=== PATIENT | female | born 1955 | race Caucasian/White ===

== ENCOUNTER 2016-08-17 09:43 | Day surgery (SDC) | payer OTHER ==
[~2016-08-17] VITALS: Ht 166.6 cm; Wt 91.3 kg
[2016-08-17] VITALS (10 sets, daily range): BP systolic 114–123; BP diastolic 59–74; PULSE 60–80; RESP 12–17; O2SAT 97–100
[~2016-08-17 09:43] MED LIST: ADAL40PE SQ; ASPI-628 PO; ATRV10T PO; AZEL205. NS; BUPR100T15 PO; CHOL200020 PO; DETROL LA4 M1 PO; FOLI1TAB18 PO; GABA600T2 PO; INSLIS SUBQ; INSU100V7 SUBQ; LEFL20TA18 PO; LISI10TA2 PO; LORA10TA7 PO; METF500T4 PO; MONT10TA20 PO; MULT-426 PO; OMEP-113 PO; OXYB15TA PO; TRAM50TA2 PO; TRAZ150T72 PO; ZIPR80CA2 PO; levoFLOXacin Inj 500 MG in IV Premix 1 EACH IV SCH
[2016-08-17] MEDS ORDERED: fentaNYL-PF 50 mCg/mL 2 mL Inj ONE (09:44)
[2016-08-17] MEDS ORDERED: EPHEDrine/NS 5 mg/mL 5 mL Syringe ONE (09:44)
[2016-08-17] MEDS ORDERED: Propofol 10,000 mCg/mL 20 mL Inj ONE (09:44)
[2016-08-17] MEDS ORDERED: Ondansetron 2 mg/mL 2 mL Inj ONE (09:44)
[2016-08-17] MEDS: Lactated Ringer's 1,000 ML IV SCH ×2 (09:58→11:58)
[2016-08-17] MEDS ORDERED: INSU100V2 SUBQ (10:07)
[2016-08-17] MEDS ORDERED: Lactated Ringer's 1,000 ML IV SCH (11:11)
[2016-08-17] MEDS ORDERED: Lactated Ringer's 500 ML IV PRN (11:11)
[2016-08-17] MEDS ORDERED: EPHEDrine Sulfate 50 mg/mL Inj IVPUSH PRN (11:15)
[2016-08-17] MEDS ORDERED: Phenylephrine 10,000 mCg/mL Inj IVPUSH PRN (11:15)
[2016-08-17] MEDS ORDERED: MetoCLOpramide 5 mg/mL 2 mL Inj IVPUSH PRN (11:15)
[2016-08-17] MEDS ORDERED: hydrALAZINE 20 mg/mL Inj IVPUSH PRN (11:15)
[2016-08-17] MEDS ORDERED: fentaNYL-PF 50 mCg/mL 2 mL Inj IVPUSH PRN (11:15)
[2016-08-17] MEDS ORDERED: Labetalol 5 mg/mL 4 mL Inj IV PRN (11:15)
[2016-08-17] MEDS ORDERED: Ondansetron 2 mg/mL 2 mL Inj IVPUSH PRN (11:15)
[2016-08-17] MEDS ORDERED: HYDROmorphone 1 mg/mL Inj IVPUSH PRN (11:15)
[2016-08-17] MEDS ORDERED: Atropine 0.4 mg/mL Inj IVPUSH PRN (11:15)
--- NOTE | 2016-08-17 11:56 | PCM.HPANE ---
Patient Data Surgeon Admitting Provider: Attending Provider:Margot Grant MD Primary Care Physician:Paddy Rosenthal MD Other Provider:[facility] Reason for Visit Mixed Incontinence, Urgency Of Urination Ht/WT & BMI Height (Feet): 5 Height (Inches): 5.58 Weight (Kilograms): 91.3 Body Mass Index 32.00 Allergies Coded Allergies: fluoxetine (Verified Allergy, Severe, Suicidal ideation, 04/28/09) prochlorperazine (Verified Allergy, Severe, 08/20/14) calcium (Verified Allergy, Unknown, 11/18/13) docusate (Verified Allergy, Unknown, 11/18/13) folic acid (Verified Allergy, Unknown, 11/18/13) iron,carbonyl (Verified Allergy, Unknown, 11/18/13) vitamins with calcium (Verified Allergy, Unknown, 11/18/13) prochlorperazine edisylate (Verified Allergy, Unknown, 11/18/13) prochlorperazine maleate (Verified Allergy, Unknown, 11/18/13) sulfasalazine (Verified Allergy, Unknown, 04/28/09) Past Anesthesia History Anesthesia History: Denies:: Abnormal Airway, Anesthesia Reactions, Difficult Intubation, Fam Anesthesia Reaction, Fam Malignant Hypertherm, Malignant Hyperthermia Diabetes History Hx Diabetes?: Yes Glycemic Control: Insulin & Oral Medication Current Bedside Blood Glucose: 156 MRSA MRSA: No Medications Blood Thinner: Aspirin Home Meds Incl Beta Manolo: No Reported Medications Insulin Glulisine (Apidra U100 Insulin Vial)100 Unit/1 Ml Mdyu50-01 Units SUBQ TIDWM #10 08/17/16 Oxybutynin Chloride ER 15 Mg Tab.er.2415 Mg PO DAILY Ref 0 08/15/16 Insulin Glargine (Lantus U100 Insulin Vial)100 Unit/Ml Vial9 Unit SUBQ HS #1 VIAL Ref 0 08/15/16 Cholecalciferol (Vitamin D3) (Vitamin D-3)2,000 Unit Capsule2,000 Unit PO DAILY 08/20/14 Trazodone 150 Mg Inxjdg830 Mg PO HS 30 Days Ref 0 08/20/14 Tramadol 50 Mg Hsgtik49 Mg PO Q8 PRN For Pain Ref 0 08/20/14 Montelukast (Singulair)10 Mg Fpgpgl71 Mg PO AM 30 Days Ref 0 08/20/14 Multivitamin with Minerals (One Daily 50 Plus)1 Each Tablet1 Each PO DAILY 08/20/14 Omeprazole Magnesium (Omeprazole)20 Mg Capsule.dr20 Mg PO BID 30 Days Ref 0 08/20/14 Metformin 500 Mg Tablet1,000 Mg PO HS 30 Days Ref 0 08/20/14 Loratadine 10 Mg Lpqbsw81 Mg PO DAILY 30 Days Ref 0 08/20/14 Lisinopril 10 Mg Bnlchf90 Mg PO DAILY 30 Days Ref 0 08/20/14 Leflunomide 20 Mg Sfigta66 Mg PO DAILY 08/20/14 Ziprasidone (Geodon)80 Mg Lryxhlq27 Mg PO HS 30 Days 08/20/14 Gabapentin 600 Mg Svcker191 Mg PO TID 30 Days Ref 0 08/20/14 Bupropion 100 Mg Kkfnrp927 Mg PO BID 30 Days Ref 0 08/20/14 Atorvastatin (Lipitor)10 Mg Tab40 Mg PO DAILY 30 Days Ref 0 08/20/14 Aspirin (Aspir 81)81 Mg Tablet.dr81 Mg PO DAILY Ref 0 08/20/14 Discontinued Reported Medications Tolterodine Tartrate ER (Detrol LA)4 Mg Capsule4 Mg PO DAILY 08/15/16 Adalimumab (Humira)40 Mg/0.8 Ml Pen.ij.kit40 Mg SQ 08/20/14 Insulin Human Lispro (HumaLOG U100 Insulin Vial)100 Unit/Ml Unit5-10 SUBQ TID- INSULIN #20 ML Ref 3 Check blood sugars before meals and at bedtime. Use correction factor only before meals. Blood Sugar Lispro Correction: <151, 0 units; 151-175, 1 unit; 176-200, 2 units; 201-225, 3 units; 226-250, 4 units; 251-275, 5 units; 276-300, 6 units; 301-325, 7 units; 326-350, 8 units; 351-375, 9 units; 376-400, 10 units; >400, 12 units. 08/20/14 Folic Acid 1 Mg Tablet1 Mg PO DAILY 30 Days 08/20/14 Azelastine HCl (Astepro)205.5 Mcg/0.137 Ml Alpaugh.nqay574.5 Mcg NS BID 08/20/14 History History of ENT Problems?: No HEENT History: Positive for:: Cataracts (NUCLEAR SENILE CATARACT) Denies:: Abnormal Airway Difficult Intubation Dysphagia Hearing Problem Other HEENT Pertinent History: DRY TOOTH SOCKET Hx of Heart Problems?: Yes Cardiovascular History: Positive for:: Cardiac Surgery (heart cath) Chest Pain (2013) Coronary Artery Disease (S/P CORONARY STENTING.) Hypertension (ELEVATED CHLORESTEROL) Denies:: AICD Atrial Fibrillation Congestive Heart Failure Edema Heart Murmur Irregular Heartbeat Pacemaker Thrombophlebitis Valvular Heart Disease Other Cardiac History: Currently >4 METS, denies WEN/SOB Hx of Respiratory Problem?: Yes Respiratory History: Positive for:: Cough (dry cough, allergy related ) Denies:: Asthma COPD Hemoptysis Pneumonia Tuberculosis Other Resp Pertinent History: DOES HAVE SLEEP APNEA Hx Neurologic Problems?: Yes Neurological History: Positive for:: Dizziness (BENIGN PAROXYSMAL POSITIONAL VERTIGO) Headaches Denies:: CVA Dementia Other Neurological Pertinent: RESTLESS LEG SYNDROM INSOMNIA Hx of GI Problems?: Yes Gastrointestinal History: Positive for:: Gastroesphageal Reflux (takes Omeprazole BID, denies current symptoms) Heartburn Hiatal Hernia Denies:: Cirrhosis Diverticulitis Gastrointestinal Bleeding Hepatitis Rectal Bleeding Other GI Pertinent History: DIARRHEA Hx of Problems?: No Genitourinary History: Positive for:: Urinary Tract Infection Other Pertinent History: HPV Female Hx: Denies:: Currently Endometriosis Pelvic Inflammatory Problems with Breasts? Skin History: Positive for:: History Skin Disorders? (Psoriasis in past) Denies:: Pressure Ulcers Hx Musculoskeletal Problems?: Yes Musculoskeletal History: Positive for:: Back Injury Rheumatoid Arthritis Denies:: Joint Replacement Musculoskeletal Trauma Hx of Psycho/Social Problems?: Yes Psycho Social History: Positive for:: Anxiety Bipolar Disorder Hx Depression Suicide Attempt (last in 2003) Hx Surgeries?: Yes (stents, laproscopic procedure ) Hx Any Other Health Problems?: Yes Other History: Positive for:: Hospitalization Denies:: Cancer Endocrine Disease Thyroid Disease History Blood Transfusions: Denies:: Blood Transfuse Reaction Blood Transfusions Hx Diabetes: YesBedside Blood Glucose: 156 Hx Alcohol Use: NoHx Substance Use: No Smoking Status: Never Smoker Have You Smoked inLast 12 mo: No Stop/Bang S-Snoring: Do You Snore Loudly: No T-Tired: feel tired, fatigued: No O-Obsered: Observed not breath: No P-Blood Pressure: treated: Yes B- Body Mass Index > 35 kg/m2: No A- Age over 50: Yes N- Neck Large Circumference: No G- Gender Male: No WOODROW Total Score: 2 WOODROW Risk Assessment: Low Risk, <3 Yes Risk Assessment Category Category 1A: Patient has history of documented sleep apnea, and HAS NOT received any narcotic, sedative or anesthesia administration during this stay. Category 1B: Patient has history of documented sleep apnea, and HAS received any narcotic , sedative or anesthesia administration during this stay Category 2: Patient has SUSPECTED Obstructive Sleep Apnea, and HAS received any narcotic , sedative or anesthesia administration during this stay. Category 3: Patient has SUSPECTED Obstructive Sleep Apnea and HAS NOT received narcotic, sedative or anesthesia administration during this stay. Category 4: Outpatient in Procedural Areas with known sleep apnea or who screen positive for High Risk via the STOP/BANG questionnaire. Exam Exam Vital Signs Vital Signs Date Time Temp Pulse Resp B/P Pulse Ox O2 Delivery O2 Flow Rate FiO2 08/17/16 10:14 36.0 60 16 116/59 99 Room Air General Appearance: Alert, Oriented X3, Cooperative, No Acute Distress HEENT/AIRWAY: MP 2 Lungs: Clear to Auscultation, Normal Air Movement Heart: Exam Unremarkable, Regular Rate/Rhythm, No Murmurs/Rubs/Gallops Meds/Labs/Diagnostics Admission Meds Current Medications Lactated Ringer's (Lr) 1,000 ml @ 120 mls/hr Q8H20M IV Last administered on t 09:58; Start 08/17/16 at 05:00; Stop 08/17/16 at 13:19 Bedside Blood Glucose: 156 Plan Impression Patient chart reviewed, patient interviewed and anesthestic plan with risks, benefits, and alternatives discussed, and informed consent obtained. NPO Status: 08/16/16 ASA Physical Status: ASA2 Mod Systemic Disease Anesthetic Plan: GA Bene/Risks/Altern/Consents: Yes HP Complete Prior to Induction: Yes Nestor Lockwood MD Aug 17, 2016 10:38
[2016-08-17] MEDS ORDERED: Ondansetron 8 mg ODT Tablet PO PRN (12:40)
[2016-08-17] MEDS ORDERED: HYDROcodone-APAP 5-325 mg Tablet PO PRN (12:40)
[2016-08-17] MEDS ORDERED: Phenazopyridine 97.5 mg Tablet PO PRN (12:40)
--- NOTE | 2016-08-17 12:52 | PCM.ANEP1 ---
Post Anesthesia Phase 1 PACU Phase 1 Assessment Vital Signs Vital Signs Date Time Temp Pulse Resp B/P Pulse Ox O2 Delivery O2 Flow Rate FiO2 08/17/16 12:46 70 12 114/60 100 Nasal Cannula 3 08/17/16 12:40 77 12 122/70 98 Nasal Cannula 3 08/17/16 12:38 36.1 80 17 123/64 98 Nasal Cannula 3 08/17/16 10:14 36.0 60 16 116/59 99 Room Air Anesthetic Administered: GA Level of Alertness: Awake, talking GRACIA's with Equal Strength: Yes Pain: No Nausea or Vomiting: No Oxygen Delivery: Nasal Cannula Lungs: Clear to Auscultation, Normal Air Movement Nestor Lockwood MD Aug 17, 2016 12:52
--- NOTE | 2016-08-17 12:58 | PCM.ANEP2 ---
Post Anesthesia Evaluation ASA/CMS Post Anesthesia VS in Patient's Normal Range?: Yes Resp Stable; Airway Patent?: Yes CV Function & Hydration Stable: Yes Mental Status Recovered?: Yes Pain control Satisfactory?: Yes N/V Control Satisfactory?: Yes Nestor Lockwood MD Aug 17, 2016 12:57
--- NOTE | 2016-08-17 14:37 | OP ---
[address] [address] OPERATIVE REPORT PATIENT: ARLEN GHOSH : 1955 MR#: [id number] ADMIT: 08/17/2016 JOB ID: [id number] DATE OF SURGERY: 08/17/2016 PROCEDURE NAME: 1. Cystoscopy. 2. Macroplastique injection into the bladder neck and proximal urethra. SURGEON: Margot Grant MD. ANESTHESIA: General. PREOPERATIVE DIAGNOSIS(ES): Stress urinary continence, female. POSTOPERATIVE DIAGNOSIS(ES): Stress urinary continence, female. INDICATIONS: The patient is a 61-year-old woman with multiple medical problems, mixed incontinence with a large stress component, desiring trial of a bulking agent, Macroplastique, for her stress incontinence. PROCEDURE IN DETAIL: After appropriate informed consent was obtained, the patient was brought to the operating room. She received IV antibiotics prior to the onset of the procedure. SCD were placed. After general anesthesia induced, she has carefully placed in dorsal lithotomy position. All pressure points carefully padded. Cleaned, prepped, and draped in the usual sterile fashion. Rigid scope was introduced into her bladder, which was drained. We then withdrew this to examine the urethra. Noted to be rather gaping and patulous. A total of 3 cc of Macroplastique were injected into three different sites providing good proximal urethral coaptation with a great decrease in the amount of leakage she had with bladder pressure. There was minimal bleeding. She tolerated this very well, was awakened, taken in stable condition to the postanesthesia care unit after her bladder was drained with a 12-Yoruba catheter.
== END 2016-08-17 23:59 | disposition home or self-care (01) ==
LOC: SAS 09:43
PROVIDERS: ATTEND Urology
DX: N39.46 Mixed incontinence (principal); I25.10 Atherosclerotic heart disease of native coronary artery without angina pectoris; I10 Essential (primary) hypertension; E78.5 Hyperlipidemia, unspecified; F31.9 Bipolar disorder, unspecified; E11.9 Type 2 diabetes mellitus without complications; L40.50 Arthropathic psoriasis, unspecified; K21.9 Gastro-esophageal reflux disease without esophagitis; M79.7 Fibromyalgia; E66.9 Obesity, unspecified; Z68.34 Body mass index [BMI] 34.0-34.9, adult; Z95.5 Presence of coronary angioplasty implant and graft; Z79.891 Long term (current) use of opiate analgesic; Z87.891 Personal history of nicotine dependence; Z79.4 Long term (current) use of insulin; Z79.82 Long term (current) use of aspirin; Z79.84 Long term (current) use of oral hypoglycemic drugs
CPT/HCPCS: 51715; J2405; J3010; J7120; L8606

== ENCOUNTER 2016-11-07 19:52 | Emergency (ER) | payer OTHER ==
[~2016-11-07] VITALS: Ht 165.1 cm; Wt 94.0 kg
[~2016-11-07 19:52] MED LIST changes: -ADAL40PE SQ; -AZEL205. NS; -DETROL LA4 M1 PO; -FOLI1TAB18 PO; -INSLIS SUBQ; +INSU100V2 SUBQ; -levoFLOXacin Inj 500 MG in IV Premix 1 EACH IV SCH
[2016-11-07 20:24] VITALS: BP 116/79; PULSE 73; RESP 16; O2SAT 100
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
[2016-11-07] MEDS ORDERED: IBUP-1827 PO (23:30)
[2016-11-07 23:51] VITALS: BP 133/74; PULSE 67; RESP 14; O2SAT 98
[2016-11-07 23:55] VITALS: BP 133/74; PULSE 67; RESP 14; O2SAT 98
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
== END 2016-11-07 23:54 | disposition home or self-care (01) ==
LOC: SED 19:52
DX: S16.1XXA Strain of muscle, fascia and tendon at neck level, initial encounter (principal); S29.019A Strain of muscle and tendon of unspecified wall of thorax, initial encounter; V43.62XA Car passenger injured in collision with other type car in traffic accident, initial encounter; Y93.89 Activity, other specified; Y92.410 Unspecified street and highway as the place of occurrence of the external cause; Y99.8 Other external cause status; E04.1 Nontoxic single thyroid nodule; I10 Essential (primary) hypertension; E11.9 Type 2 diabetes mellitus without complications; K21.9 Gastro-esophageal reflux disease without esophagitis; E78.5 Hyperlipidemia, unspecified; Z79.82 Long term (current) use of aspirin; Z79.4 Long term (current) use of insulin; Z79.84 Long term (current) use of oral hypoglycemic drugs; Z95.5 Presence of coronary angioplasty implant and graft; Z88.2 Allergy status to sulfonamides; Z88.8 Allergy status to other drugs, medicaments and biological substances
CPT/HCPCS: 72072; 72125; 96372; 99285; J1885

== ENCOUNTER 2017-02-05 10:08 | Emergency (ER) | payer OTHER ==
[~2017-02-05] VITALS: Ht 166.4 cm; Wt 95.5 kg
[~2017-02-05 10:08] MED LIST changes: +IBUP-1827 PO
[2017-02-05 10:10] VITALS: BP 145/68; PULSE 88; RESP 18; O2SAT 98
--- NOTE | 2017-02-05 10:18 | ED.REPORT ---
HPI-Chest Pain 40 and Over Date of Service Feb 05, 2017 ED Provider: Joe Poole MD Patient is a 61 year old female with a history of diabetes, stent placement and hypertension who presents to the ED complaining of chest pressure onset this morning. Associated symptoms include dyspnea with deep inhalation, a non productive cough for the past month but has been improving over the past 4 days , upper bilateral back pain, lightheadedness and "lung congestion". She denies fever, nausea, vomiting, dizziness, abdominal pain, leg swelling or hemoptysis. Patient states she has not felt this pain before. She currently takes daily ASA. Nursing Notes Stated Complaint: CHEST PAIN,HARD TO BREATH Chief Complaint: Chest Pain Nursing Notes Reviewed: Yes Allergies: Coded Allergies: fluoxetine (Verified Allergy, Severe, Suicidal ideation, 04/28/09) prochlorperazine (Verified Allergy, Severe, 08/20/14) calcium (Verified Allergy, Unknown, 11/18/13) docusate (Verified Allergy, Unknown, 11/18/13) folic acid (Verified Allergy, Unknown, 11/18/13) iron,carbonyl (Verified Allergy, Unknown, 11/18/13) methotrexate (Unverified Allergy, Unknown, 11/07/16) vitamins with calcium (Verified Allergy, Unknown, 11/18/13) prochlorperazine edisylate (Verified Allergy, Unknown, 11/18/13) prochlorperazine maleate (Verified Allergy, Unknown, 11/18/13) sulfasalazine (Verified Allergy, Unknown, 04/28/09) Scheduled Aspirin (Aspir 81) 81 Mg Tablet.dr 81 MG PO DAILY Atorvastatin (Lipitor) 10 Mg Tab 40 MG PO DAILY Azithromycin (Zithromax (Z-Edward)) 250 Mg Tablet 250 MG PO DIRECTED Take two tablets by mouth on day 1, then take one tablet daily on days 2 through 5. Bupropion (Bupropion) 100 Mg Tablet 100 MG PO BID Cholecalciferol (Vitamin D3) (Vitamin D-3) 2,000 Unit Capsule 2,000 UNIT PO DAILY Gabapentin (Gabapentin) 600 Mg Tablet 600 MG PO TID Insulin Glargine (Lantus U100 Insulin Vial) 100 Unit/Ml Vial 9 UNIT SUBQ HS Insulin Glulisine (Apidra U100 Insulin Vial) 100 Unit/1 Ml Vial 15-20 UNITS SUBQ TIDWM Leflunomide (Leflunomide) 20 Mg Tablet 20 MG PO DAILY Lisinopril (Lisinopril) 10 Mg Tablet 10 MG PO DAILY Loratadine (Loratadine) 10 Mg Tablet 10 MG PO DAILY Metformin (Metformin) 500 Mg Tablet 1,000 MG PO HS Montelukast (Singulair) 10 Mg Tablet 10 MG PO AM Multivitamin with Minerals (One Daily 50 Plus) 1 Each Tablet 1 EACH PO DAILY Omeprazole Magnesium (Omeprazole) 20 Mg Capsule.dr 20 MG PO BID Oxybutynin Chloride ER (Oxybutynin Chloride ER) 15 Mg Tab.er.24 15 MG PO DAILY Trazodone (Trazodone) 150 Mg Tablet 150 MG PO HS Ziprasidone (Geodon) 80 Mg Capsule 80 MG PO HS Scheduled PRN Ibuprofen (Ibuprofen) 600 Mg Tablet 600 MG PO QID PRN PRN For Pain Promethazine DM Syrup (Promethazine DM Syrup) 118 Ml Syrup 5 ML PO HS PRN PRN For Cough Tramadol (Tramadol) 50 Mg Tablet 50 MG PO Q8 PRN PRN For Pain General Time Seen by MD: 10:14 Chief Complaint Chest pain Hx Obtained From: Patient Arrived By: Walk-in Sudden in Onset?: Yes Onset Occurred: 1 - 4 hours ago Symptom Duration: Since onset Location: : Substernal Quality: Pressure Radiation: : Back Severity: Current: Moderate Past Medical History Past Medical History Heart disease Hyperlipidemia Insulin-dependent DM GERD Psoriatic arthritis Reports: Hypertension Past Surgical History Stent placement Laparoscopy Smoking History Never Smoker Social History Alcohol Use: Denies alcohol use Drug Use: Denies drug use Occupation lives with partner, no work or school at this time04/23/2016 Ambulatory Status Independent Review of Systems Constitutional: Denies: Chills, Fever Respiratory: Reports: Dyspnea on exertion, Non-productive cough, Shortness of breath, Denies: Hemoptysis Cardiovascular: Reports: Chest pain GI: Denies: Abdominal pain, Nausea, Vomiting Musculoskeletal: Reports: Back pain, Denies: Extremity swelling Skin: Denies Itching, Denies Rash Neurologic: Reports: Lightheaded, Denies: Dizziness Complete sys rev & neg: except as marked. Physical Exam Initial Vital Signs Vital Signs (First) Date Time Temp Pulse Resp B/P Pulse Ox O2 Delivery O2 Flow Rate FiO2 02/05/17 10:10 36.2 88 18 145/68 98 Room Air Initial VS: Reviewed General/Constitutional: Awake, Alert Respiratory / Chest: Atraumatic, Breath sounds NL, Breath sounds = bilat, No respiratory distress Cardiovascular: Heart rate NL, Regular rhythm, Heart sounds NL, No murmurs Abdomen: Atraumatic, Soft, Non-tender Lower Extremity / Pelvis / MS: Atraumatic, No edema Skin: Atraumatic, Color NL, No rash, Warm, Dry Neurologic: Oriented X3, Speech NL, No motor deficits, No sensory deficits Psychiatric: Affect NL, Mood NL Head / Eyes: Atraumatic, Normocephalic, PERRL, EOMI Interpretation & Diagnostics Lab Results Interpretation Result Diagram: 02/05/17 1035 02/05/17 1035 Test 02/05/17 10:35 White Blood Count 6.1th/mm3 (3.8-10.1) Red Blood Count 3.95mil/mm3 (3.90-5.20) Hemoglobin 11.7g/dL (12.0-15.6) Hematocrit 36.2% (35.0-46.0) Mean Corpuscular Volume 91.6fL (81-100) Mean Corpuscular Hemoglobin 29.6pg (27.0-35.0) Mean Corpuscular Hemoglobin Concent 32.3% (32.0-37.0) Red Cell Distribution Width 13.5% (12.3-15.4) Platelet Count 169bil/L (150-400) Neutrophils (%) (Auto) 64.1% (40-74) Lymphocytes (%) (Auto) 27.0% (14-46) Monocytes (%) (Auto) 6.4% (4-12) Eosinophils (%) (Auto) 1.8% (0-5) Basophils (%) (Auto) 0.5% (0-3) D-Dimer < 0.50mg/L FEU (<0.50) Sodium Level 137mEq/L (134-144) Potassium Level 4.4mEq/L (3.5-5.2) Chloride Level 98mEq/L (97-108) Carbon Dioxide Level 21mmol/L (18-29) Blood Urea Nitrogen 15mg/dL (6-24) Creatinine 0.90mg/dL (0.57-1.00) Estimat Glomerular Filtration Rate 92mL/min (>59) Glucose Level 228mg/dL (60-99) Calcium Level 9.1mg/dL (8.5-10.1) Total Bilirubin 0.2mg/dL (0.0-1.2) Aspartate Amino Transf (AST/SGOT) 18U/L (0-50) Alanine Aminotransferase (ALT/SGPT) 10U/L (0-32) Alkaline Phosphatase 64U/L (25-165) Troponin T 0.010ug/L (0.0-0.011) Pro-B-Type Natriuretic Peptide 26.41pg/mL (0-287) Total Protein 7.0g/dL (6.4-8.4) Albumin 4.0g/dL (3.4-5.0) ECG Interpretation ECG Interpretation: no ST changes Qtc is prolonged at 533 T wave flattening V3-V6 Time: 10:29 Interpreted by: ED physician Normal ECG Interpretation: Normal rate (74), Normal sinus rhythm X-Ray Chest Interpretation Chest Xray Interpretation: IMPRESSION: Acute disease is not seen. Cause of pain and dyspnea is not identified. Dictated by: Samuel Begum M.D. on 02/05/2017 at 11:04 Approved by: Samuel Begum M.D. on 02/05/2017 at 11:04 View: Portable, 1 view Interpretation / Wet Read by: Interpret - Radiologist Re-Eval/Medical Decision Med Decision/Clinical Course 61-year-old female history of CAD, diabetes presenting with cough 1 month and chest congestion for several days. She denies any chest pain but reports chest pressure since this morning. She reports this is not felt like her previous heart problems or heart attacks. Her EKG shows no acute changes. Her troponins are negative. Her d-dimer is negative. Her vital signs are stable. Chest x-ray is clear. I discussed the patient and I recommended a repeat troponin which she declined and insisted on going home. She understands the risks. This is probably more likely a bronchitis. She will be treated with azithromycin and cough suppressant. She will follow up with primary doctor tomorrow. Return precautions given. Time of Eval: 12:16 Re-Evaluation/Progress Note: Discussed results and patient would like to leave. Discussed plan for discharge. Patient understands and agrees to plan. All questions were addressed. Counseled Regarding: Diagnosis, Lab results, Need for follow-up, When/why to return to ED Discharge & Departure Primary Impression: Bronchitis Disposition: Home Discharge Condition All VS Reviewed: Yes Condition: Stable Patient Instructions: Upper Respiratory Infection (ED) Additional Instructions: Your chest X-ray and labs were normal and reassuring. Your heart enzyme and blood clot enzyme were both normal. An immediately dangerous or concerning cause for your pain was not identified at this time. There was no evidence of blood clot or pneumonia. You can take the z-pack antibiotic as prescribed Follow up with your primary care physician later this week if symptoms persist. Return to the emergency department if you develop any new or concerning symptoms including shortness of breath, increasing chest pain or fever. Referrals: Paddy Rosenthal MD (PCP) Pankaj Attestation Portions of this note were transcribed by Tracey Heller. I, Dr. Poole personally performed the history, physical exam and medical decision-making; I reviewed and confirmed the accuracy of the information in the transcribed note. Signed by: Pankaj Rojas, 02/05/17 copies to: Paddy Rosenthal MD, Ben M MD Feb 05, 2017 10:18 Isabella Heller Feb 05, 2017 10:40
[2017-02-05 10:47] VITALS: BP 111/57; PULSE 77; RESP 15; O2SAT 94
[2017-02-05 10:58] LABS: Mean Corpuscular Volume 91.6 fL (81-100)
[2017-02-05 10:59] LABS: BASOPHILS % (AUTO) 0.5 % (0-3); EOSINOPHILS % (AUTO) 1.8 % (0-5); MONOCYTES % (AUTO) 6.4 % (4-12); Mean Corpuscular Hemoglobin 29.6 pg (27.0-35.0); NEUTROPHILS % (AUTO) 64.1 % (40-74); Platelet Count 169 bil/L (150-400)
--- NOTE | 2017-02-05 11:07 | DRSVH ---
PROCEDURE: X-RAY CHEST ONE VIEW, PORTABLE ([id number]) INDICATIONS: Dyspnea/Chest pain TECHNIQUE: One view of the chest was acquired. COMPARISON: None. FINDINGS: Surgical changes and devices: electronic device monitor leads are seen over the chest. Lungs and pleura: No pleural effusions or pneumothorax. Lungs are clear. Mediastinum: Mediastinal contours appear normal. Heart size is normal. Bones and chest wall: No suspicious bony lesions. Overlying soft tissues appear unremarkable. IMPRESSION: Acute disease is not seen. Cause of pain and dyspnea is not identified. Dictated by: Samuel Begum M.D. on 02/05/2017 at 11:04 Approved by: Samuel Begum M.D. on 02/05/2017 at 11:04
[2017-02-05 11:13] LABS: TROPONIN T 0.01 ug/L (0.0-0.011)
[2017-02-05] MEDS ORDERED: AZIT250T4 PO (12:22)
[2017-02-05] MEDS ORDERED: D-ME118S8 PO (12:22)
[2017-02-05 12:30] VITALS: BP 118/62; PULSE 72; RESP 17; O2SAT 95
== END 2017-02-05 12:33 | disposition home or self-care (01) ==
LOC: SED 10:08
DX: J40 Bronchitis, not specified as acute or chronic (principal); E78.5 Hyperlipidemia, unspecified; K21.9 Gastro-esophageal reflux disease without esophagitis; I10 Essential (primary) hypertension; Z88.8 Allergy status to other drugs, medicaments and biological substances; Z88.2 Allergy status to sulfonamides; Z79.4 Long term (current) use of insulin; Z95.5 Presence of coronary angioplasty implant and graft; Z79.82 Long term (current) use of aspirin; Z79.84 Long term (current) use of oral hypoglycemic drugs
CPT/HCPCS: 36415; 71010; 80053; 83880; 84484; 85025; 85378; 93005; 96374; 99285; J1885